=== PATIENT | male | born 1965 | race Caucasian/White ===

== ENCOUNTER → 2018-09-09 11:30 | Outpatient (CLI) | payer OTHER, SELFPAY ==
--- NOTE | 2018-09-09 11:34 | DI.RAD.S_ITS ---
PROCEDURE: XR LUMBAR SPINE MIN 4V INDICATIONS: chronic low back pain TECHNIQUE: 7 views of the lumbar spine were acquired. COMPARISON: None. FINDINGS: Bones: No fracture or focal osseous destruction. Multilevel degenerative endplate sclerosis and spurring. Diffuse facet arthropathy. Moderate to severe narrowing of the L3-L4, L4-5 and L5-S1 disc spaces. No evidence of abnormal motion with dynamic flexion and extension lateral views. Bilateral hip joint degeneration. Soft tissues: Overlying bowel gas pattern is normal. No suspicious soft tissue calcifications. Oblique images: No pars defects. IMPRESSION: Mid to lower lumbar spondylosis and diffuse facet arthropathy. No evidence of abnormal motion with dynamic flexion and extension lateral views. Dictated by: Anjel Bateman M.D. on 09/09/2018 at 13:55 Approved by: Anjel Bateman M.D. on 09/09/2018 at 13:56
== END ==
PROVIDERS: PCP Family Medicine; Visit Provider Physical Medicine & Rehabilitation
DX: M54.5 Low back pain (principal); M47.26 Other spondylosis with radiculopathy, lumbar region; M47.27 Other spondylosis with radiculopathy, lumbosacral region; M96.1 Postlaminectomy syndrome, not elsewhere classified; G89.29 Other chronic pain
CPT/HCPCS: 72110